=== PATIENT | male | born 1960 | race Caucasian/White ===

== ENCOUNTER 2022-03-21 10:55 | Inpatient (IN) | payer OTHER ==
[~2022-03-21] VITALS: Ht 182.9 cm; Wt 82.3 kg
[~2022-03-21 10:55] MED LIST: ALBU90I INH; AMOCLA875 PO; AZIT500 PO; CLIN300 PO; CYCL10 PO; GLUCHON PO; HYDACE5 PO; HYDACE5325 PO; IBUP200; IBUP400 PO; MUPI2TO TOP; NAPR500 PO; NAPR550 PO; OXYACE10 PO; RXHYD5325 PO; SULTRIDS PO
[2022-03-21 11:45] LABS: BASOPHILS ABSOLUTE AUTO 0.05 K/mm3 (0.00-0.23); BASOPHILS PERCENT AUTO 1 % (0-2); EOSINOPHILS ABSOLUTE AUTO 0.25 K/mm3 (0.00-0.68); EOSINOPHILS PERCENT AUTO 3 % (0-6); Hematocrit 31.9 % (37.0-53.0); Hemoglobin 11.2 g/dL (13.5-17.5); IMMATURE GRAN ABSOLUTE AUTO 0.06 K/mm3 (0.00-0.10); IMMATURE GRAN PERCENT AUTO 1 % (0-1); LYMPHOCYTES ABSOLUTE AUTO 2.18 K/mm3 (0.84-5.20); LYMPHOCYTES PERCENT AUTO 21 % (21-46); MONOCYTES ABSOLUTE AUTO 0.69 K/mm3 (0.16-1.47); MONOCYTES PERCENT AUTO 7 % (4-13); Mean Corpuscular HGB 35.9 pg (26.0-34.0); Mean Corpuscular HGB Conc 35.1 g/dL (31.5-36.5); Mean Corpuscular Volume 102 fL (80-100); Mean Platelet Volume 10.9 fL (9.1-12.4); NEUTROPHILS ABSOLUTE AUTO 6.96 K/mm3 (1.96-9.15); NEUTROPHILS PERCENT AUTO 68 % (41-73); Platelet Count 129 K/mm3 (150-400); RDW Coefficient Variation 11.9 % (11.7-14.2); RDW Standard Deviation 45.1 fL (35.1-46.3); Red Blood Cell Count 3.12 M/mm3 (4.30-5.90); White Blood Cell Count 10.19 K/mm3 (4.00-11.30)
[2022-03-21 11:58] LABS: Albumin, Blood 3.1 g/dL (3.4-5.0); Albumin/Globulin Ratio 0.9 (0.8-1.8); Bilirubin, Total 0.5 mg/dL (0.1-1.0); Bun/Creatinine Ratio 20.9 (12.0-20.0); Calcium, Blood 8.5 mg/dL (8.5-10.1); Creatinine, Blood 0.81 mg/dL (0.60-1.20); Globulin, Blood 3.6 g/dL (2.2-4.0); Potassium, Blood 4.1 mmol/L (3.5-5.5); Total Protein, Blood 6.7 g/dL (6.4-8.2)
[2022-03-21] MEDS ORDERED: Lisinopril2.5 MG PO (12:49)
[2022-03-21] MEDS ORDERED: GABA100 PO (12:50)
[2022-03-21] MEDS ORDERED: TIZA4 PO (12:50)
[2022-03-21] MEDS ORDERED: LISI20 PO (16:04)
--- NOTE | 2022-03-21 17:26 | NUR ---
ADMISSION/SHIFT SUMMARY: PT ADMITTED F/ER, ARRIVES A&Ox4. PT STANDS AND TRANSFERS SELF F/GURNEY TO BED, REPORTS DIZZINESS UPON STANDING, SBA PRESENT. PT STATES HE HAS HAD 3 FALLS AT HOME THIS PAST WEEK, BRUISING AND SWELLING NOTED TO R CHEST/RIBS. PT REPORTS SOB AT REST THAT INCREASES W/ACTIVITY, O2 SATS >93% ON RA, OCCASIONAL COUGH PRODUCTIVE OF WHITE SPUTUM. PT DENIES RIB PAIN AT REST, STATES IT BECOMES INTENSE WHEN COUGHING, PT HAS BEEN SPLINTING WHEN COUGHING. AFIB ON MONITOR UPON ARRIVAL W/RATE 130s-140s, OCCASIONALLY PEAKING UP TO 190 BUT NOT SUSTAINING. DILTIAZEM INFUSION HAS BEEN TITRATED UP TO 15 MG/HR, CURRENT RATE 120s-140s. PT REPORTS BEING CONTINENT OF BLADDER/BOWEL AT BASELINE, STATES LAST BM WAS THIS AM. PT REPORTS BEING DAILY SMOKER OF APPRX 10 CIGS/DAY UP TO 1 PACK/DAY. PT STATES HE MAY BE AGREEABLE TO A NICOTINE PATCH TOMORROW. PT ALSO REPORTS BEING DAILY DRINKER OF APPRX 4 BEERS/DAY W/LAST DRINK THIS AM PRIOR TO ARRIVAL AT ER. AT THIS TIME, PT RESTING QUIETLY IN BED W/TV ON AND CALL LIGHT IN REACH. WILL CONTINUE TO MONITOR AND TREAT ACCORDINGLY UNTIL CHANGE OF SHIFT.
[2022-03-22 04:17] LABS: BASOPHILS ABSOLUTE AUTO 0.06 K/mm3 (0.00-0.23); BASOPHILS PERCENT AUTO 1 % (0-2); EOSINOPHILS ABSOLUTE AUTO 0.47 K/mm3 (0.00-0.68); EOSINOPHILS PERCENT AUTO 4 % (0-6); Hematocrit 27.7 % (37.0-53.0); Hemoglobin 10.1 g/dL (13.5-17.5); IMMATURE GRAN ABSOLUTE AUTO 0.07 K/mm3 (0.00-0.10); IMMATURE GRAN PERCENT AUTO 1 % (0-1); LYMPHOCYTES ABSOLUTE AUTO 2.45 K/mm3 (0.84-5.20); LYMPHOCYTES PERCENT AUTO 20 % (21-46); MONOCYTES ABSOLUTE AUTO 0.79 K/mm3 (0.16-1.47); MONOCYTES PERCENT AUTO 6 % (4-13); Mean Corpuscular HGB 36.6 pg (26.0-34.0); Mean Corpuscular HGB Conc 36.5 g/dL (31.5-36.5); Mean Corpuscular Volume 100 fL (80-100); Mean Platelet Volume 10.4 fL (9.1-12.4); NEUTROPHILS ABSOLUTE AUTO 8.62 K/mm3 (1.96-9.15); NEUTROPHILS PERCENT AUTO 69 % (41-73); Platelet Count 131 K/mm3 (150-400); RDW Coefficient Variation 11.9 % (11.7-14.2); RDW Standard Deviation 43.4 fL (35.1-46.3); Red Blood Cell Count 2.76 M/mm3 (4.30-5.90); White Blood Cell Count 12.46 K/mm3 (4.00-11.30)
[2022-03-22 04:56] LABS: Albumin, Blood 2.8 g/dL (3.4-5.0); Albumin/Globulin Ratio 0.8 (0.8-1.8); Bilirubin, Total 0.6 mg/dL (0.1-1.0); Bun/Creatinine Ratio 22.4 (12.0-20.0); Calcium, Blood 8.5 mg/dL (8.5-10.1); Creatinine, Blood 0.85 mg/dL (0.60-1.20); Globulin, Blood 3.4 g/dL (2.2-4.0); Magnesium, Blood 1.9 mg/dL (1.6-2.4); Potassium, Blood 4.2 mmol/L (3.5-5.5); Total Protein, Blood 6.2 g/dL (6.4-8.2)
--- NOTE | 2022-03-22 05:59 | NUR ---
SHIFT SUMMARY PT A/O X4, PLEASANT AND COOPERATIVE. HE USED THE CALL LIGHT APPROPRIATELY. PT IS SBA TO THE BATHROOM. HE DID REPORT SOME LIGHT HEADEDNESS DURING PREVIOUS SHIFT, BUT DENIED ANY WITH AMBULATION FOR THIS RN. PT HAS FREQUENT PRODUCTIVE COUGH AND IS SPLINTING DUE TO INCREASED PAIN IN R RIB CAGE AND R SHOULDER. PT O2 SAT >92% ON ROOM AIR. PT STATES PAIN INCREASES WITH ANY MOVEMENT OR COUGHING, BUT IS STABLE AT REST. PT IN AFIB WITH A RATE IN THE 110'S AT THE START OF SHIFT. DILTIAZEM DRIP WAS INFUSING AT 15MG/HR. DILTIAZEM DRIP WAS TITRATED DOWN TO 5MG/HR. PT IS STILL CURRENTLY IN AFIB, HR RANGING FROM 85-110. PT DENIES ANY CP, PRESSURE OR SOB. PT C/O DIFFICULTY SLEEPING DUE TO PAIN. PT MEDICATED PER EMAR WITH PRN ANALGESICS. PT SEEMED TO BE RESTING COMFORTABLY INBETWEEN PRN MEDICATIONS. WILL CONTINUE TO CARE FOR PT AND REPORT TO ONCOMING RN.
--- NOTE | 2022-03-22 08:46 | NUR ---
UPDATE: HR SUSTAINING IN 80s-90s RANGE, AFIB CONTINUES. DILIAZEM PLACED ON STANDBY.
--- NOTE | 2022-03-22 14:07 | NUR ---
Assumed care of the patient. He is lying in bed, HOB slightly elevated, eyes closed, and respirations even, unlabored at 12/minute. ATrial fibrillation noted by telemetry monitoring at the bedside, rate 80-100 bpm.
--- NOTE | 2022-03-22 17:23 | NUR ---
Pt states back pain 09/05, unimproved since administration of 1000mg Tylenol and scheduled gabapentin. Zanaflex given per PRN orders at this time. Pt states that he takes it three times a day at home.
--- NOTE | 2022-03-23 06:38 | NUR ---
SHIFT SUMMARY A/OX4, SBA TO BATHROOM. PLEASANT AND COOPERATIVE WITH CARE. C/O BACK/RIB PAIN, MEDICATED PER EMAR. BP STABLE; DENIES CHEST PAIN/PRESSURE. SPO2 >92% ON RA, WHEEZES NOTED T/O. TELE AFIB IN THE 90S. VSS, NO ACUTE CHANGES AT THIS TIME. BED IN LOWEST POSITION WITH CALL LIGHT IN REACH. WILL CONTINUE TO MONITOR AND REPORT TO ONCOMING RN.
--- NOTE | 2022-03-23 10:57 | NUR ---
This morning the pt stated that he was having pain 7/10 in his lower back and in his shoulders. No dyspnea, no palpitations he said. Ambulatory to the bathroom and heart rate increases (consistently atrial fibrillation) to 150 bpm with the activity. He states that he feels like his blood pressure is high when he gets up and moves around, but he denies pain, denies dyspnea. Unable to articulate exactly what he is feeling when he feels that his blood pressure is high. Lung sounds improved from yesterday, diminished in the bases posteriorly, with fine inspiratory crackles but fewer than yesterday. He says that he has been coughing up a lot of white mucous. Given muscle relaxant and oxycodone per PRN orders, as well as scheduled Tylenol. Noted increased Toprol XL dose to 100 mg this morning.
--- NOTE | 2022-03-23 11:09 | NUR ---
Pt is lying in bed, resting. lead technical architect noted that the heart rate is trending down, sustaining less than 100 bpm while at rest.
--- NOTE | 2022-03-23 11:51 | NUR ---
Pt's vital signs taken. Noted lower blood pressure while lying, and when he stood he briefly felt symptomic, but it resolved within less than a minute. Heart rate was 105, and blood pressure 90/66 while standing. Pt walked into the bathroom, and heart rate was controlled (ATRIAL fibrillation) 90s to 110 bpm. The pt states that he feels fine walking to the bathroom to void, and walking around the room briefly.
[2022-03-23] MEDS ORDERED: NICO21TP TOP (14:22)
[2022-03-23] MEDS ORDERED: ASPI81CH PO (14:23)
[2022-03-23] MEDS ORDERED: METO50ER PO (14:23)
[2022-03-23] MEDS ORDERED: OXAYDO5 M2 PO (14:23)
--- NOTE | 2022-03-23 15:00 | NUR ---
1443 Discharge instructions were reviewed with the patient and his mother at the bedside. Pt's blood pressure has been lower on the Toprol XL 100 mg taken this morning. Instructed to not take his lisinopril until he sees his PCP for follow up next week, to prevent symptomatic hypotension. Pt states he notices that he feels lightheaded when first getting up, and has been taking it slowly today until he adjusts to the position changes. Reviewed his discharge instructions, new medications and follow up appointment instructions. Hard Rx paper given to the patient for his oxycodone pain medication. Pt declined offer to be taken out in wheelchair.He insisted on walking out, so was accompanied by RN as he was going out. He felt short of breath after walking briskly down the hallway, so he sat on a bench briefly until he said he had recovered and was taken out in wheelchair to the vehicle driven by his mother. Independently able to get into vehicle and denied any further symptoms at that time of departure. Belongings were placed in the back seat at his request.
== END 2022-03-23 14:50 | disposition home or self-care (01) | DRG 200 ==
LOC: ER 10:55 → PCU 14:05
PROVIDERS: Emergency Medicine; ADMIT Internal Medicine
DX: S27.0XXA Traumatic pneumothorax, initial encounter (principal); E87.1 Hypo-osmolality and hyponatremia; S22.41XA Multiple fractures of ribs, right side, initial encounter for closed fracture; S27.322A Contusion of lung, bilateral, initial encounter; Z28.21 Immunization not carried out because of patient refusal; M54.50 Low back pain, unspecified; G89.29 Other chronic pain; I48.91 Unspecified atrial fibrillation; F17.210 Nicotine dependence, cigarettes, uncomplicated; J43.8 Other emphysema; D69.6 Thrombocytopenia, unspecified; I10 Essential (primary) hypertension; R55 Syncope and collapse; D64.9 Anemia, unspecified; F10.129 Alcohol abuse with intoxication, unspecified; Z79.2 Long term (current) use of antibiotics; Z79.899 Other long term (current) drug therapy; W18.39XA Other fall on same level, initial encounter
CPT/HCPCS: 36415; 70450; 71045; 71046; 71260; 80053; 83735; 84484; 85025; 93005; 93010; 93306; 96365-59; 96375-59; 96376-59; 97161; 97530; 99285-25; A9270; J1650; J1885; J3010; Q9967

== ENCOUNTER 2022-05-16 14:52 | Inpatient (IN) | payer OTHER ==
[~2022-05-16] VITALS: Ht 185.4 cm; Wt 81.6 kg
[~2022-05-16 14:52] MED LIST changes: +ASPI81CH PO; +GABA100 PO; +LISI20 PO; +Lisinopril2.5 MG PO; +METO50ER PO; +NICO21TP TOP; +OXAYDO5 M2 PO; +TIZA4 PO
[2022-05-16 15:23] LABS: BASOPHILS ABSOLUTE AUTO 0.08 K/mm3 (0.00-0.23); BASOPHILS PERCENT AUTO 1 % (0-2); EOSINOPHILS PERCENT AUTO 0 % (0-6); Hematocrit 38.8 % (37.0-53.0); IMMATURE GRAN ABSOLUTE AUTO 0.04 K/mm3 (0.00-0.10); IMMATURE GRAN PERCENT AUTO 0 % (0-1); LYMPHOCYTES ABSOLUTE AUTO 2.29 K/mm3 (0.84-5.20); LYMPHOCYTES PERCENT AUTO 23 % (21-46); MONOCYTES PERCENT AUTO 5 % (4-13); Mean Corpuscular HGB 36.3 pg (26.0-34.0); Mean Corpuscular HGB Conc 36.1 g/dL (31.5-36.5); Mean Corpuscular Volume 101 fL (80-100); Mean Platelet Volume 9.6 fL (9.1-12.4); NEUTROPHILS ABSOLUTE AUTO 7.11 K/mm3 (1.96-9.15); NEUTROPHILS PERCENT AUTO 71 % (41-73); Platelet Count 238 K/mm3 (150-400); RDW Coefficient Variation 13.2 % (11.7-14.2); Red Blood Cell Count 3.86 M/mm3 (4.30-5.90); White Blood Cell Count 10.02 K/mm3 (4.00-11.30)
[2022-05-16 15:53] LABS: Albumin, Blood 3.9 g/dL (3.4-5.0); Albumin/Globulin Ratio 1.1 (0.8-1.8); Bilirubin, Total 0.6 mg/dL (0.1-1.0); Bun/Creatinine Ratio 20.3 (12.0-20.0); Creatinine, Blood 1.23 mg/dL (0.60-1.20); Globulin, Blood 3.4 g/dL (2.2-4.0); Potassium, Blood 3.8 mmol/L (3.5-5.5); Total Protein, Blood 7.3 g/dL (6.4-8.2)
[2022-05-16 18:29] LABS: Anti-Xa UFH, PHA Monitoring 0.1 IU/mL; International Normalized Ratio 0.98; Prothrombin Time Results 10.3 Sec (9.7-11.5)
[2022-05-16] MEDS ORDERED: METO100ER PO (20:51)
[2022-05-17 03:21] LABS: BASOPHILS ABSOLUTE AUTO 0.08 K/mm3 (0.00-0.23); BASOPHILS PERCENT AUTO 1 % (0-2); EOSINOPHILS ABSOLUTE AUTO 0.04 K/mm3 (0.00-0.68); EOSINOPHILS PERCENT AUTO 1 % (0-6); Hematocrit 32.6 % (37.0-53.0); Hemoglobin 11.7 g/dL (13.5-17.5); IMMATURE GRAN ABSOLUTE AUTO 0.03 K/mm3 (0.00-0.10); IMMATURE GRAN PERCENT AUTO 0 % (0-1); LYMPHOCYTES ABSOLUTE AUTO 2.57 K/mm3 (0.84-5.20); LYMPHOCYTES PERCENT AUTO 30 % (21-46); MONOCYTES ABSOLUTE AUTO 0.53 K/mm3 (0.16-1.47); MONOCYTES PERCENT AUTO 6 % (4-13); Mean Corpuscular HGB 35.8 pg (26.0-34.0); Mean Corpuscular HGB Conc 35.9 g/dL (31.5-36.5); Mean Corpuscular Volume 100 fL (80-100); NEUTROPHILS ABSOLUTE AUTO 5.37 K/mm3 (1.96-9.15); NEUTROPHILS PERCENT AUTO 62 % (41-73); Platelet Count 175 K/mm3 (150-400); RDW Coefficient Variation 13.3 % (11.7-14.2); RDW Standard Deviation 48.5 fL (35.1-46.3); Red Blood Cell Count 3.27 M/mm3 (4.30-5.90); White Blood Cell Count 8.62 K/mm3 (4.00-11.30)
[2022-05-17 03:37] LABS: Albumin, Blood 3.3 g/dL (3.4-5.0); Albumin/Globulin Ratio 1.2 (0.8-1.8); Bun/Creatinine Ratio 23.6 (12.0-20.0); Calcium, Blood 7.8 mg/dL (8.5-10.1); Creatinine, Blood 0.85 mg/dL (0.60-1.20); Globulin, Blood 2.8 g/dL (2.2-4.0); Magnesium, Blood 1.8 mg/dL (1.6-2.4); Phosphorus, Blood 3.2 mg/dL (2.5-4.9); Potassium, Blood 3.8 mmol/L (3.5-5.5); Total Protein, Blood 6.1 g/dL (6.4-8.2)
[2022-05-17 14:28] LABS: BASOPHILS ABSOLUTE AUTO 0.07 K/mm3 (0.00-0.23); BASOPHILS PERCENT AUTO 1 % (0-2); EOSINOPHILS ABSOLUTE AUTO 0.03 K/mm3 (0.00-0.68); EOSINOPHILS PERCENT AUTO 1 % (0-6); Hematocrit 30.9 % (37.0-53.0); IMMATURE GRAN ABSOLUTE AUTO 0.02 K/mm3 (0.00-0.10); IMMATURE GRAN PERCENT AUTO 0 % (0-1); LYMPHOCYTES ABSOLUTE AUTO 1.51 K/mm3 (0.84-5.20); LYMPHOCYTES PERCENT AUTO 23 % (21-46); MONOCYTES ABSOLUTE AUTO 0.51 K/mm3 (0.16-1.47); MONOCYTES PERCENT AUTO 8 % (4-13); Mean Corpuscular HGB 36.2 pg (26.0-34.0); Mean Corpuscular HGB Conc 35.6 g/dL (31.5-36.5); Mean Corpuscular Volume 102 fL (80-100); Mean Platelet Volume 10.3 fL (9.1-12.4); NEUTROPHILS ABSOLUTE AUTO 4.51 K/mm3 (1.96-9.15); NEUTROPHILS PERCENT AUTO 68 % (41-73); Platelet Count 149 K/mm3 (150-400); RDW Coefficient Variation 13.3 % (11.7-14.2); Red Blood Cell Count 3.04 M/mm3 (4.30-5.90); White Blood Cell Count 6.65 K/mm3 (4.00-11.30)
[2022-05-18 07:58] LABS: Albumin, Blood 2.9 g/dL (3.4-5.0); Anion Gap 6 mmol/L (6-16); Blood Urea Nitrogen 12 mg/dL (8-24); Bun/Creatinine Ratio 15.5 (12.0-20.0); CO2, Blood 23 mmol/L (21-32); Calcium, Blood 8.2 mg/dL (8.5-10.1); Chloride, Blood 107 mmol/L (98-108); Creatinine, Blood 0.78 mg/dL (0.60-1.20); Glomerular Filtration Rate 102 (60-); Glucose, Blood 118 mg/dL (70-99); Phosphorus, Blood 3.2 mg/dL (2.5-4.9); Potassium, Blood 3.6 mmol/L (3.5-5.5); Sodium, Blood 136 mmol/L (136-145)
[2022-05-18 11:24] LABS: Source, Urine Foley catheter
[2022-05-18 11:29] LABS: Appearance, Urine Clear (Clear); Bilirubin, Urine Neg (Neg); Blood, Urine 3+ (Neg); Color, Urine Yellow (P-Yellow); Glucose Qualitative, Urine Neg (Neg); Ketones, Urine Neg (Neg); Leukocyte Esterase, Urine 2+ (Neg); Nitrite, Urine Neg (Neg); Protein, Urine 1+ (Neg); Urobilinogen, Urine 1+ (Normal); pH, Urine 6.5 (5.0-8.0)
[2022-05-18 12:54] LABS: Bacteria Mod /hpf; Mucus Light (0-Heavy); Squamous Epithelial Cells Few /hpf (Few)
[2022-05-19 04:04] LABS: BASOPHILS ABSOLUTE AUTO 0.05 K/mm3 (0.00-0.23); BASOPHILS PERCENT AUTO 1 % (0-2); EOSINOPHILS ABSOLUTE AUTO 0.14 K/mm3 (0.00-0.68); EOSINOPHILS PERCENT AUTO 2 % (0-6); Hematocrit 30.7 % (37.0-53.0); Hemoglobin 10.6 g/dL (13.5-17.5); IMMATURE GRAN ABSOLUTE AUTO 0.03 K/mm3 (0.00-0.10); IMMATURE GRAN PERCENT AUTO 0 % (0-1); LYMPHOCYTES ABSOLUTE AUTO 2.06 K/mm3 (0.84-5.20); LYMPHOCYTES PERCENT AUTO 30 % (21-46); MONOCYTES PERCENT AUTO 9 % (4-13); Mean Corpuscular HGB 35.9 pg (26.0-34.0); Mean Corpuscular HGB Conc 34.5 g/dL (31.5-36.5); Mean Corpuscular Volume 104 fL (80-100); Mean Platelet Volume 10.8 fL (9.1-12.4); NEUTROPHILS ABSOLUTE AUTO 3.91 K/mm3 (1.96-9.15); NEUTROPHILS PERCENT AUTO 58 % (41-73); Platelet Count 116 K/mm3 (150-400); RDW Coefficient Variation 13.1 % (11.7-14.2); RDW Standard Deviation 50.4 fL (35.1-46.3); Red Blood Cell Count 2.95 M/mm3 (4.30-5.90); White Blood Cell Count 6.79 K/mm3 (4.00-11.30)
[2022-05-19 04:22] LABS: Albumin, Blood 2.9 g/dL (3.4-5.0); Anion Gap 5 mmol/L (6-16); Blood Urea Nitrogen 10 mg/dL (8-24); Bun/Creatinine Ratio 13.9 (12.0-20.0); CO2, Blood 26 mmol/L (21-32); Calcium, Blood 8.2 mg/dL (8.5-10.1); Chloride, Blood 106 mmol/L (98-108); Creatinine, Blood 0.72 mg/dL (0.60-1.20); Glomerular Filtration Rate 105 (60-); Glucose, Blood 124 mg/dL (70-99); Magnesium, Blood 1.9 mg/dL (1.6-2.4); Phosphorus, Blood 3.5 mg/dL (2.5-4.9); Potassium, Blood 3.6 mmol/L (3.5-5.5); Sodium, Blood 137 mmol/L (136-145)
[2022-05-19] MEDS ORDERED: ELIQUIS5 M2 PO (15:52)
[2022-05-19] MEDS ORDERED: METO25ER PO (15:52)
[2022-05-19] MEDS ORDERED: DILT180 PO (15:53)
[2022-05-19] MEDS ORDERED: MIDO5 PO (15:54)
== END 2022-05-19 16:28 | disposition home or self-care (01) | DRG 309 ==
LOC: ER 14:52 → PCU 17:58
PROVIDERS: Emergency Medicine; ADMIT Family Medicine
DX: I48.91 Unspecified atrial fibrillation (principal); E87.1 Hypo-osmolality and hyponatremia; I10 Essential (primary) hypertension; J44.9 Chronic obstructive pulmonary disease, unspecified; F17.210 Nicotine dependence, cigarettes, uncomplicated; F41.9 Anxiety disorder, unspecified; F10.20 Alcohol dependence, uncomplicated; M54.9 Dorsalgia, unspecified; G89.29 Other chronic pain; N28.9 Disorder of kidney and ureter, unspecified; R74.8 Abnormal levels of other serum enzymes; R33.9 Retention of urine, unspecified; Z79.811 Long term (current) use of aromatase inhibitors; Z91.14 Patient's other noncompliance with medication regimen; Z79.891 Long term (current) use of opiate analgesic; Z79.899 Other long term (current) drug therapy; Z79.82 Long term (current) use of aspirin
CPT/HCPCS: 36415; 51701; 51703; 71045; 76770; 80053; 80069; 81001; 83735; 83880; 84100; 84484; 85025; 85520; 85610; 85730; 87086; 93005; 93010; 94760; 94762; 96361; 96365; 96366; 96368; 96375; 96376; 99285-25; A9270; C1751; G0480; J0696; J1644; J1650; J2060; J3411; J3475; J7030

== ENCOUNTER 2022-05-20 10:43 | Emergency (ER) | payer OTHER ==
[~2022-05-20] VITALS: Ht 185.4 cm; Wt 83.9 kg
[~2022-05-20 10:43] MED LIST changes: +DILT180 PO; +ELIQUIS5 M2 PO; +METO100ER PO; +METO25ER PO; +MIDO5 PO
== END 2022-05-20 12:16 | disposition home or self-care (01) ==
LOC: ER 10:43
DX: T83.021A Displacement of indwelling urethral catheter, initial encounter (principal); Y84.6 Urinary catheterization as the cause of abnormal reaction of the patient, or of later complication, without mention of misadventure at the time of the procedure; I10 Essential (primary) hypertension; I48.91 Unspecified atrial fibrillation; F17.200 Nicotine dependence, unspecified, uncomplicated; Z79.899 Other long term (current) drug therapy; Z79.82 Long term (current) use of aspirin; Z79.01 Long term (current) use of anticoagulants
CPT/HCPCS: 99283

== ENCOUNTER 2022-09-13 20:33 | Emergency (ER) | payer OTHER ==
[~2022-09-13] VITALS: Ht 185.4 cm; Wt 81.7 kg
[2022-09-13 21:31] LABS: BASOPHILS ABSOLUTE AUTO 0.06 K/mm3 (0.00-0.23); BASOPHILS PERCENT AUTO 1 % (0-2); EOSINOPHILS ABSOLUTE AUTO 0.07 K/mm3 (0.00-0.68); EOSINOPHILS PERCENT AUTO 1 % (0-6); Hematocrit 33.4 % (37.0-53.0); Hemoglobin 12.4 g/dL (13.5-17.5); IMMATURE GRAN ABSOLUTE AUTO 0.02 K/mm3 (0.00-0.10); IMMATURE GRAN PERCENT AUTO 0 % (0-1); LYMPHOCYTES ABSOLUTE AUTO 2.33 K/mm3 (0.84-5.20); LYMPHOCYTES PERCENT AUTO 43 % (21-46); MONOCYTES ABSOLUTE AUTO 0.35 K/mm3 (0.16-1.47); MONOCYTES PERCENT AUTO 6 % (4-13); Mean Corpuscular HGB 35.5 pg (26.0-34.0); Mean Corpuscular HGB Conc 37.1 g/dL (31.5-36.5); Mean Corpuscular Volume 96 fL (80-100); Mean Platelet Volume 10.4 fL (9.1-12.4); NEUTROPHILS ABSOLUTE AUTO 2.61 K/mm3 (1.96-9.15); NEUTROPHILS PERCENT AUTO 48 % (41-73); Platelet Count 86 K/mm3 (150-400); RDW Coefficient Variation 13.9 % (11.7-14.2); RDW Standard Deviation 49.1 fL (35.1-46.3); Red Blood Cell Count 3.49 M/mm3 (4.30-5.90); White Blood Cell Count 5.44 K/mm3 (4.00-11.30)
[2022-09-13 22:02] LABS: Albumin/Globulin Ratio 1.3 (0.8-1.8); Bilirubin, Total 0.6 mg/dL (0.1-1.0); Bun/Creatinine Ratio 14.5 (12.0-20.0); Calcium, Blood 8.8 mg/dL (8.5-10.1); Creatinine, Blood 0.83 mg/dL (0.60-1.20); Potassium, Blood 3.9 mmol/L (3.5-5.5)
[2022-09-14 07:49] VITALS: BP 123/73
== END 2022-09-14 07:59 | disposition home or self-care (01) ==
LOC: ER 20:33
PROVIDERS: Emergency Medicine
DX: S09.90XA Unspecified injury of head, initial encounter (principal); S40.022A Contusion of left upper arm, initial encounter; S40.021A Contusion of right upper arm, initial encounter; F10.129 Alcohol abuse with intoxication, unspecified; R29.6 Repeated falls; W19.XXXA Unspecified fall, initial encounter; Z79.899 Other long term (current) drug therapy; Z79.82 Long term (current) use of aspirin; I10 Essential (primary) hypertension; I48.91 Unspecified atrial fibrillation; J44.9 Chronic obstructive pulmonary disease, unspecified; F17.210 Nicotine dependence, cigarettes, uncomplicated
CPT/HCPCS: 70450; 72125; 80053; 85025; 93005; 93010; 99285-25; G0480; J7030

== ENCOUNTER 2024-07-09 11:28 | Emergency (ER) | payer OTHER ==
[~2024-07-09] VITALS: Ht 175.3 cm; Wt 65.8 kg
[2024-07-09] MEDS ORDERED: PROTHROMBIN COMPLEX CONCENTRATE IV SCH (12:15)
[2024-07-09 12:17] LABS: BASOPHILS ABSOLUTE AUTO 0.04 K/mm3 (0.00-0.23); BASOPHILS PERCENT AUTO 0 % (0-2); EOSINOPHILS ABSOLUTE AUTO 0.01 K/mm3 (0.00-0.68); EOSINOPHILS PERCENT AUTO 0 % (0-6); Hemoglobin 10.1 g/dL (13.5-17.5); IMMATURE GRAN ABSOLUTE AUTO 0.07 K/mm3 (0.00-0.10); IMMATURE GRAN PERCENT AUTO 1 % (0-1); LYMPHOCYTES ABSOLUTE AUTO 0.86 K/mm3 (0.84-5.20); LYMPHOCYTES PERCENT AUTO 7 % (21-46); MONOCYTES ABSOLUTE AUTO 1.39 K/mm3 (0.16-1.47); MONOCYTES PERCENT AUTO 11 % (4-13); Mean Corpuscular HGB 37.5 pg (26.0-34.0); Mean Corpuscular HGB Conc 34.8 g/dL (31.5-36.5); Mean Corpuscular Volume 108 fL (80-100); Mean Platelet Volume 9.3 fL (9.1-12.4); NEUTROPHILS ABSOLUTE AUTO 10.89 K/mm3 (1.96-9.15); NEUTROPHILS PERCENT AUTO 82 % (41-73); Platelet Count 324 K/mm3 (150-400); RDW Standard Deviation 50.9 fL (35.1-46.3); Red Blood Cell Count 2.69 M/mm3 (4.30-5.90); White Blood Cell Count 13.26 K/mm3 (4.00-11.30)
[2024-07-09] MEDS ORDERED: Human Prothrombin Complx(Pcc) 2,000 UNIT in Water For Injection,Sterile 80 ML IV ONE (12:25)
[2024-07-09 12:53] LABS: Albumin, Blood 3.3 g/dL (3.4-5.0); Albumin/Globulin Ratio 0.9 (0.8-1.8); Bilirubin, Total 0.8 mg/dL (0.1-1.0); Bun/Creatinine Ratio 30.7 (12.0-20.0); Creatinine, Blood 0.72 mg/dL (0.60-1.20); Globulin, Blood 3.7 g/dL (2.2-4.0); Potassium, Blood 3.3 mmol/L (3.5-5.5)
[2024-07-09 14:35] VITALS: BP 146/72
== END 2024-07-09 14:25 | disposition short-term general hospital (02) ==
LOC: ER 11:28
PROVIDERS: Emergency Medicine
DX: S06.5X9A Traumatic subdural hemorrhage with loss of consciousness of unspecified duration, initial encounter (principal); S06.6X9A Traumatic subarachnoid hemorrhage with loss of consciousness of unspecified duration, initial encounter; S22.31XA Fracture of one rib, right side, initial encounter for closed fracture; S32.019A Unspecified fracture of first lumbar vertebra, initial encounter for closed fracture; S32.029A Unspecified fracture of second lumbar vertebra, initial encounter for closed fracture; S32.039A Unspecified fracture of third lumbar vertebra, initial encounter for closed fracture; R74.8 Abnormal levels of other serum enzymes; D64.9 Anemia, unspecified; F10.10 Alcohol abuse, uncomplicated; I10 Essential (primary) hypertension; I48.91 Unspecified atrial fibrillation; J44.9 Chronic obstructive pulmonary disease, unspecified; F17.210 Nicotine dependence, cigarettes, uncomplicated; Z79.01 Long term (current) use of anticoagulants; Z79.82 Long term (current) use of aspirin; Z79.899 Other long term (current) drug therapy; Z91.81 History of falling; W19.XXXA Unspecified fall, initial encounter
CPT/HCPCS: 70450; 71260; 72125; 74177; 80053; 80320; 82140; 82550; 82947; 84484; 85025; 93005; 93010; 96374-59; 99285-25; J7168; Q9967

== ENCOUNTER 2025-02-16 17:47 | Emergency (ER) | payer OTHER ==
[~2025-02-16] VITALS: Ht 182.9 cm; Wt 83.9 kg
[2025-02-16 17:59] VITALS: BP 108/75
[2025-02-16] MEDS ORDERED: Lidocaine 2% Jelly Uro-Jet UR ONE (18:15)
[2025-02-16 18:58] LABS: Source, Urine Clean Catch
[2025-02-16 18:58] LABS: BASOPHILS ABSOLUTE AUTO 0.10 K/mm3 (0.00-0.23); BASOPHILS PERCENT AUTO 1 % (0-2); EOSINOPHILS ABSOLUTE AUTO 0.28 K/mm3 (0.00-0.68); EOSINOPHILS PERCENT AUTO 4 % (0-6); Hematocrit 29.2 % (37.0-53.0); Hemoglobin 9.8 g/dL (13.5-17.5); IMMATURE GRAN ABSOLUTE AUTO 0.02 K/mm3 (0.00-0.10); IMMATURE GRAN PERCENT AUTO 0 % (0-1); LYMPHOCYTES ABSOLUTE AUTO 2.71 K/mm3 (0.84-5.20); LYMPHOCYTES PERCENT AUTO 38 % (21-46); MONOCYTES ABSOLUTE AUTO 0.90 K/mm3 (0.16-1.47); MONOCYTES PERCENT AUTO 13 % (4-13); Mean Corpuscular HGB Conc 33.6 g/dL (31.5-36.5); Mean Corpuscular Volume 100 fL (80-100); NEUTROPHILS ABSOLUTE AUTO 3.08 K/mm3 (1.96-9.15); NEUTROPHILS PERCENT AUTO 44 % (41-73); NRBC ABSOLUTE 0.00 K/mm3 (0.00-0.02); NRBC Auto 0.0 /100 WBC (0.0-0.2); Platelet Count 241 K/mm3 (150-400); RDW Coefficient Variation 13.2 % (11.7-14.2); RDW Standard Deviation 48.3 fL (35.1-46.3)
[2025-02-16 19:22] LABS: Alanine Aminotransfer (ALT/SGP <6 U/L (12-78); Albumin, Blood 3.3 g/dL (3.4-5.0); Albumin/Globulin Ratio 0.9 (0.8-1.8); Anion Gap 7 mmol/L (3-11); Aspartate Aminotrans (AST/SGOT 10 U/L (12-37); Bilirubin, Total 0.2 mg/dL (0.1-1.0); Blood Urea Nitrogen 16 mg/dL (8-24); CO2, Blood 28 mmol/L (21-32); Calcium, Blood 8.8 mg/dL (8.5-10.1); Chloride, Blood 100 mmol/L (98-108); Creatinine, Blood 0.76 mg/dL (0.60-1.20); Globulin, Blood 3.6 g/dL (2.2-4.0); Glucose, Blood 106 mg/dL (70-99); Potassium, Blood 4.4 mmol/L (3.5-5.5); Sodium, Blood 131 mmol/L (136-145); Total Protein, Blood 6.9 g/dL (6.4-8.2)
[2025-02-16 19:22] LABS: Bilirubin, Urine Neg (Neg); Color, Urine Yellow (P-Yellow); Glucose Qualitative, Urine Neg (Neg); Ketones, Urine Neg (Neg); Leukocyte Esterase, Urine 1+ (Neg); Protein, Urine Neg (Neg); Specific Gravity, Urine 1.010 (1.003-1.022); Urobilinogen, Urine NORM (Normal)
[2025-02-16 19:35] LABS: Red Blood Cells, Urine Not Seen /hpf (0-2); White Blood Cells, Urine 0-2 /hpf (0-5)
== END 2025-02-16 21:05 | disposition home or self-care (01) ==
LOC: ER 17:47
PROVIDERS: Student in an Organized Health Care Education/Training Program
DX: R94.4 Abnormal results of kidney function studies (principal); D64.9 Anemia, unspecified; E87.1 Hypo-osmolality and hyponatremia; L03.313 Cellulitis of chest wall; I10 Essential (primary) hypertension; I48.91 Unspecified atrial fibrillation; J44.9 Chronic obstructive pulmonary disease, unspecified; F17.210 Nicotine dependence, cigarettes, uncomplicated; Z79.2 Long term (current) use of antibiotics; Z79.82 Long term (current) use of aspirin; Z79.01 Long term (current) use of anticoagulants; Z79.899 Other long term (current) drug therapy
CPT/HCPCS: 51798; 80053; 81001; 85025; 99283